=== PATIENT | male | born 1985 | race Caucasian/White ===

== ENCOUNTER 2020-09-18 10:39 | Emergency (ER) | payer MEDICAID, SELFPAY ==
[2020-09-18 10:42] VITALS: BP 122/90; PULSE 105; RESP 22; TEMP 36.4; O2SAT 95
--- NOTE | 2020-09-18 11:02 | ED.GENADUL_ITS ---
Discharge Plan Disposition Patient Disposition: HOME Condition: Stable Discharge Details Clinical Impression: Hyperglycemia Primary Care Provider: None,None ED Provider: Pascual Mohamud Home Meds and New Rx's Prescriptions: New metformin 500 mg tablet extended release 24 hr 500 mg PO QPM Qty: 10 RF: 0 Discharge Instructions Instructions: Diabetic Hyperglycemia (ED) Additional Instructions: At this time your glucose level is elevated and you have received IV fluid. Your A1c shows that your average glucose level has been approximately 310. As we discussed, today is only the start of your evaluation and therapy. I am going to give you 10 days worth of an oral medication called Metformin. I have placed you on the care management list to help expedite outpatient primary care follow-up and a meeting with the certified adaptive physical educator. Please watch for new or worsening symptoms and return to the ER for any concerns. Medical Decision Making <ROCHELLE Singh - Last Filed: 09/18/20 13:31> 34-year-old male presents to the ER today after his medical screening at his new job revealed that his glucose was in the high 300s, low 400s. He is asymptomatic. He has not seen a medical provider in nearly 7 years. Denies recent illness or trauma. Patient is asymptomatic, but upon review of systems, he reports possibly being more thirsty than usual. Will obtain CBC, CMP, magnesium, urinalysis, A1c, give 1 L IV fluid. I have also requested that our care management team be involved, please see her note. Laboratory values reveal a white blood cell count of 5.77 hemoglobin 14 hematocrit 39.7 platelet count 214. Sodium 134 potassium 4.0, carbon dioxide 19.6 with an anion gap of 14.4 creatinine 0.98 for GFR of greater than 60. Glucose 362 hemoglobin is 11.1, calcium 8.4, urinalysis with trace ketones, trace blood, 500 mg/dl. Work-up in the ER reveals glucose of 322, A1c of 11.1, anion gap of 14.4, patient was given 1 L IV fluid. Repeat glucose 333. I will provide a prescription for Metformin extended release, 500 mg to take at night, total of 10 tablets. Our care management team will help expedite outpatient care. Our certified adaptive physical educator came to the ER to evaluate and discuss diabetes with patient, patient has no additional questions or concerns and is comfortable with this plan. Fingerstick of 242 upon discharge Lab Data Lab results reviewed: Yes I reviewed the patient's lab results. Lab results narrative: Laboratory Tests Range/Units 09/18/20 09/18/20 09/18/20 11:00 11:00 11:00 WBC (4.4-10.8) 10^3/uL 5.77 RBC (4.36-5.78) 10^6/uL 4.59 Hgb (13.5-17.5) g/dL 14.0 Hct (40.0-50.0) % 39.7 L MCV (80-95) fL 86.5 MCH (27.0-33.0) pg 30.5 MCHC (32.0-36.0) % 35.3 RDW (11.8-14.1) % 13.2 Plt Count (130-400) 10^3/uL 214 MPV (8.0-11.0) fL 9.6 Immature Gran % 0.2 Neutrophils % 53.7 Lymphocytes % 38.5 Monocytes % 5.4 Eosinophils % 1.9 Basophils % 0.3 Nucleated RBC % % 0 Absolute Neutrophils (1.2-6.7) 10^3/uL 3.10 Absolute Lymphocytes (1.2-3.4) 10^3/uL 2.22 Absolute Monocytes (0.1-0.8) 10^3/uL 0.31 Absolute Eosinophils (0.0-0.7) 10^3/uL 0.11 Absolute Basophils (0.0-0.2) 10^3/uL 0.02 Sodium (136-145) mmol/L 134 L Potassium (3.5-5.1) mmol/L 4.0 Chloride (98-107) mmol/L 100 Carbon Dioxide (21.0-32.0) mmol/L 19.6 L Anion Gap (3-11) mmol/L 14.4 H BUN (7-18) mg/dL 12 Creatinine (0.70-1.30) mg/dL 0.98 Estimated GFR/1.73 m2 (mL/min/1.73m2) >= 60.00 Glucose (74-106) mg/dL 362 H Hemoglobin A1c (<5.7) % 11.1 H Calcium (8.5-10.1) mg/dL 8.4 L Magnesium (1.8-2.4) mg/dL 1.9 Total Bilirubin (0.2-1.0) mg/dL 0.9 AST (15-37) U/L 32 ALT (16-63) U/L 64 H Alkaline Phosphatase (46-116) U/L 69 Total Protein (6.4-8.2) g/dL 7.7 Albumin (3.4-5.0) g/dL 3.7 Urine Color (Yellow) Urine Clarity (Clear) Urine pH (5-8) Ur Specific State [place] (1.005-1.025) Urine Protein (Negative) mg/dL Urine Ketones (Negative) mg/dL Urine Blood (Negative) Urine Nitrite (Negative) Urine Bilirubin (Negative) Urine Urobilinogen (Up TO 0.2) EU/dL Ur Leukocyte Esterase (Negative) Urine RBC (0-2) HPF Urine WBC (0-5) HPF Ur Epithelial Cells (Negative) HPF Urine Crystals (Negative) HPF Urine Bacteria (Negative) HPF Urine Casts (Negative) LPF Urine Mucus (Negative) Ur Culture Indicated? Urine Glucose (Negative) mg/dL Range/Units 09/18/20 11:33 WBC (4.4-10.8) 10^3/uL RBC (4.36-5.78) 10^6/uL Hgb (13.5-17.5) g/dL Hct (40.0-50.0) % MCV (80-95) fL MCH (27.0-33.0) pg MCHC (32.0-36.0) % RDW (11.8-14.1) % Plt Count (130-400) 10^3/uL MPV (8.0-11.0) fL Immature Gran % Neutrophils % Lymphocytes % Monocytes % Eosinophils % Basophils % Nucleated RBC % % Absolute Neutrophils (1.2-6.7) 10^3/uL Absolute Lymphocytes (1.2-3.4) 10^3/uL Absolute Monocytes (0.1-0.8) 10^3/uL Absolute Eosinophils (0.0-0.7) 10^3/uL Absolute Basophils (0.0-0.2) 10^3/uL Sodium (136-145) mmol/L Potassium (3.5-5.1) mmol/L Chloride (98-107) mmol/L Carbon Dioxide (21.0-32.0) mmol/L Anion Gap (3-11) mmol/L BUN (7-18) mg/dL Creatinine (0.70-1.30) mg/dL Estimated GFR/1.73 m2 (mL/min/1.73m2) Glucose (74-106) mg/dL Hemoglobin A1c (<5.7) % Calcium (8.5-10.1) mg/dL Magnesium (1.8-2.4) mg/dL Total Bilirubin (0.2-1.0) mg/dL AST (15-37) U/L ALT (16-63) U/L Alkaline Phosphatase (46-116) U/L Total Protein (6.4-8.2) g/dL Albumin (3.4-5.0) g/dL Urine Color (Yellow) Yellow Urine Clarity (Clear) Clear Urine pH (5-8) 5.5 Ur Specific State Center (1.005-1.025) 1.025 Urine Protein (Negative) mg/dL Negative Urine Ketones (Negative) mg/dL Trace H Urine Blood (Negative) Trace-intact H Urine Nitrite (Negative) Negative Urine Bilirubin (Negative) Negative Urine Urobilinogen (Up TO 0.2) EU/dL 0.2 Ur Leukocyte Esterase (Negative) Negative Urine RBC (0-2) HPF 0-2 Urine WBC (0-5) HPF 0-2 Ur Epithelial Cells (Negative) HPF Rare Urine Crystals (Negative) HPF Negative Urine Bacteria (Negative) HPF Negative Urine Casts (Negative) LPF Negative Urine Mucus (Negative) Negative Ur Culture Indicated? No Urine Glucose (Negative) mg/dL 500 H <Hudson Melendez MD - Last Filed: 09/18/20 12:11> I had a [id number] encounter with the patient. I evaluated the patient. I discussed case with TRAVEL ASSISTANT/PA and I reviewed TRAVEL ASSISTANT/PA note and agree with note as documented. HPI <ROCHELLE Singh - Last Filed: 09/18/20 13:31> General Mode of arrival: ambulatory . Date/Time Provider Initiated Documentation: 09/18/20 11:00 . Limitations to Documentation: no limitations . Information obtained by: patient . HPI Narrative: This is a 34-year-old gentleman who she is tobacco, denies any other significant past medical history. He has not seen a medical provider in approximately 7 years. He is in the process of getting a new job and because of this has been screened through work. His glucose was noted to be in the low 400s in the high 300s. He does know that diabetes runs in his family. Patient reports that he is essentially asymptomatic. Denies headache, visual changes, neck pain, chest pain, shortness of breath, abdominal pain, nausea, vomiting, change in bowel or bladder function, increased urination, skin rash, numbness, tingling, weakness. Upon further questioning, he does wonder if he was slightly more thirsty lately compared to his baseline. He denies recent illness or trauma. He admits that he has lost 20-30 pounds this year, this weight loss was not overtly intentional, but does admit to increasing his overall physical activity and a slightly better diet. Related Data Home Medications Medication Instructions Recorded Confirmed metformin 500 mg PO QPM #10 tab 09/18/20 Previous Rx's Medication Instructions Recorded metformin 500 mg PO QPM #10 tab 09/18/20 Allergies Allergy/AdvReac Type Severity Reaction Status Date / Time No Known Allergies Allergy Unverified 09/18/20 10:48 General Stated Complaint: Diabetes TERA: 4 Review of Systems <ROCHELLE Singh - Last Filed: 09/18/20 13:31> Constitutional Constitutional: Denies fatigue, Denies fever(s) and Denies weakness Eyes Eyes: Denies blurry vision and Denies change in vision ENT Ears, Nose, Mouth, and Throat: Denies dizziness and Denies neck pain Cardiovascular Cardiovascular: Denies chest pain and Denies dyspnea Respiratory Respiratory: Denies cough and Denies dyspnea Gastrointestinal Gastrointestinal: Denies abdominal pain, Denies nausea and Denies vomiting Genitourinary Genitourinary: Denies urinary frequency Musculoskeletal Musculoskeletal: Denies neck pain, Denies numbness and Denies tingling Integumentary/Breasts Skin/Breast: Denies rash Neurologic Neurologic: Denies dizziness, Denies numbness, Denies tingling and Denies weakness Endocrine Endocrine: Denies fatigue and Reports polydipsia PFSH <ROCHELLE Singh - Last Filed: 09/18/20 13:31> Medical History Gout Surgical History Hx of tonsillectomy Social History Smoking/Tobacco Use Status: Current every day Tobacco Type: smokeless tobacco Smoking risk assessment performed?: Yes Alcohol Intake: current Alcohol Intake frequency: a few times a month Substance use type: does not use Do you feel safe at home: Yes Do you feel safe in your relationship?: Yes Exam <ROCHELLE Singh - Last Filed: 09/18/20 13:31> Const General: cooperative, healthy appearing, comfortable and no acute distress Orientation: alert, awake and oriented x3 HENMT Head: normal to inspection, normocephalic and atraumatic Face and sinus: normal facial exam Mouth: moist mucous membranes Eyes General: appearance normal, both eyes and all related structures Alignment and Position: alignment normal Periorbital: periorbital findings normal Eyelids: eyelids normal Conjunctivae: conjunctivae normal Sclera: sclerae normal Cornea: corneas normal Pupils: PERRL EOM: EOM intact bilaterally Direct ophthalmoscopy: normal light reflex Neck Neck: normal visual inspection, full ROM, trachea midline and supple Resp Effort & Inspection: normal respiratory effort and able to speak in complete sentences Auscultation: clear to auscultation bilaterally Cardio Rate: regular rate Rhythm: regular rhythm GI Palpation: soft and nontender Back/Spine/Pelvis Back: No back tenderness Skin General skin exam: no rashes or lesions noted Neuro General: patient alert, patient awake, patient oriented x3, moves all extremities and no focal motor deficits Cognition: normal cognition Speech: speech normal Gait: normal gait Motor: muscle tone normal throughout Sensory Exam: no sensory deficits noted Extrem General: normal to inspection, full ROM and capillary refill normal Psych Appearance: grossly normal Mental Status: mental status grossly normal Course <ROCHELLE Singh - Last Filed: 09/18/20 13:31> Vital Signs Vital signs: Vital Signs Temperature 36.4 C L 09/18/20 10:42 Pulse 105 H 09/18/20 10:42 Respiratory Rate 22 09/18/20 10:42 Blood Pressure 122/90 09/18/20 10:42 Pulse Oximetry 95 09/18/20 10:42 Temperature 36.4 C L 09/18/20 10:42 Temperature Source Temporal Artery Scan 09/18/20 10:42 Pulse 105 H 10/30/20 10:42 Respiratory Rate 22 09/18/20 10:42 Respiratory Effort Non-Labored 09/18/20 10:49 Blood Pressure 122/90 09/18/20 10:42 Blood Pressure Position Sitting 09/18/20 10:42 Pulse Oximetry 95 09/18/20 10:42 Oxygen Delivery Method Room Air 09/18/20 10:42 Oxygen Flow Rate 0 09/18/20 10:42 Pain Level 0 09/18/20 10:42
[2020-09-18 11:09] LABS: Abs Immature Grans 0.01 10^3/uL (0.0-0.06); Absolute Basophil Count 0.02 10^3/uL (0.0-0.2); Absolute Eosinophil Count 0.11 10^3/uL (0.0-0.7); Absolute Lymphocyte Count 2.22 10^3/uL (1.2-3.4); Absolute Monocyte Count 0.31 10^3/uL (0.1-0.8); Basophils % 0.3; Eosinophils % 1.9; HCT 39.7 % (40.0-50.0); Immature Grans % 0.2; Lymphocytes % 38.5; MCH 30.5 pg (27.0-33.0); MCHC 35.3 % (32.0-36.0); MCV 86.5 fL (80-95); MPV 9.6 fL (8.0-11.0); Monocytes % 5.4; Neutrophils % 53.7; Nucleated RBC 0 %; Platelet Count 214 10^3/uL (130-400); RBC 4.59 10^6/uL (4.36-5.78); RDW 13.2 % (11.8-14.1); RDW-SD 40.8 fL; WBC 5.77 10^3/uL (4.4-10.8)
[2020-09-18] MEDS: Normal Saline 1,000 ML 1000 ML IV (11:13)
[2020-09-18 11:24] LABS: Albumin 3.7 g/dL (3.4-5.0); Alkaline Phosphatase 69 U/L (46-116); Anion Gap 14.4 mmol/L (3-11); BUN 12 mg/dL (7-18); Bilirubin, Total 0.9 mg/dL (0.2-1.0); CO2 19.6 mmol/L (21.0-32.0); CREATININE 0.98 mg/dL (0.70-1.30); Calcium 8.4 mg/dL (8.5-10.1); Chloride 100 mmol/L (98-107); Glucose 362 mg/dL (74-106); Magnesium 1.9 mg/dL (1.8-2.4); Sodium 134 mmol/L (136-145); Total Protein 7.7 g/dL (6.4-8.2)
--- NOTE | 2020-09-18 11:28 | NUR.NOTE ---
Nursing Note: Referral given to Care Management to establish care w/PCP. Indira Augustine
[2020-09-18 11:34] LABS: Hemoglobin A1C 11.1 % (<5.7)
[2020-09-18 11:40] LABS: Bilirubin Negative (Negative); Blood Trace-intact (Negative); Clarity Clear (Clear); Glucose 500 mg/dL (Negative); Ketones Trace mg/dL (Negative); Leukocyte Esterase Negative (Negative); Nitrite Negative (Negative); Specific Gravity 1.025 (1.005-1.025); Urobilinogen 0.2 EU/dL (Up TO 0.2); pH 5.5 (5-8)
[2020-09-18 11:54] LABS: Bacteria Negative HPF (Negative); C & S Indicated? No; Casts Negative LPF (Negative); Crystals Negative HPF (Negative); Epithelial Cells Rare HPF (Negative); Mucus Negative (Negative); RBC 0-2 HPF (0-2); WBC 0-2 HPF (0-5)
[2020-09-18 11:55] VITALS: BP 108/70; PULSE 92; RESP 18; TEMP 36.8; O2SAT 98
[2020-09-18 12:09] LABS: AST 32 U/L (15-37)
[2020-09-18 12:12] LABS: ALT 64 U/L (16-63)
[2020-09-18 12:46] VITALS: BP 108/70; PULSE 90; RESP 18; TEMP 36.8; O2SAT 98
--- NOTE | 2020-09-18 12:57 | NUR.NOTE ---
Nursing Note:Call placed to CM to assist getting breastfeeding educator to meet with pt in ED. Plan to discharge home with [facility] - needs meter and further diabetic management education.
--- NOTE | 2020-09-18 13:26 | NUR.NOTE ---
Nursing Note: diabetic counselor in room with pt, providing meter and instruction for home use. CM aware of referral for PCP and need for close f/u.
--- NOTE | 2020-09-18 13:37 | NUR.NOTE ---
Nursing Note: pt has follow up with diabetic counselor on of this coming week. Received education well.
--- NOTE | 2020-09-18 14:36 | DIABASSESS_ITS ---
Date of service: 09/18/20 Time of Service: 14:36 Diabetes Note NOTE: Melo referred to assembly instructions writer for diabetes education, glucometer training while in ER for new onset Type 2 Diabetes with A1c of 11%. He does not have insurance. Provided Melo with glucometer and had him check his blood sugars and demonstrate understanding on how to use device. Explained that he will need to buy test strips and lancets as needed. Recommended that he check his blood sugars 3 times daily and bring glucometer to appt. scheduled for 09/24/20 at 2pm for outpatient diabetes education. Time Spent in Nutritional Counseling and Treatment: 20 min spent face to face
== END 2020-09-18 13:38 | disposition home or self-care (01) ==
PROVIDERS: Emergency Provider Physician Assistant
DX: R73.9 Hyperglycemia, unspecified (principal)
CPT/HCPCS: 36416; 80053; 82962; 96360; 96361; 99284; 81003; 81015; 83036; 83735; 85025

== ENCOUNTER 2020-10-15 16:11 | Emergency (ER) | payer BC, SELFPAY ==
[2020-10-15] VITALS (33 sets, daily range): BP systolic 101–137; BP diastolic 60–95; PULSE 70–108; RESP 10–24; TEMP 36.4; O2SAT 95–99
--- NOTE | 2020-10-15 16:12 | ED.GENADUL_ITS ---
Discharge Plan Disposition Patient Disposition: HOME Condition: Good Discharge Details Clinical Impression: Hyperglycemia, Lightheadedness Primary Care Provider: None,None ED Provider: Tawny Guadalupe Home Meds and New Rx's Prescriptions: Continued metformin 500 mg tablet extended release 24 hr 500 mg PO QPM Qty: 10 RF: 0 Discharge Instructions Instructions: Chest Pain (ED), Diabetic Hyperglycemia (ED) Additional Instructions: Encourage water intake. Please continue with your diabetic diet as advised. Please continue with Metformin as previously prescribed. You need to follow-up with primary care for continued management of this. Care management will be in touch please continue to move forward to establish care and appropriate follow- up. With your risk factors and family history, I do feel that further cardiology work-up as an outpatient would be appropriate. I have referred you to have a cardiac stress test. If you develop fever/chills, chest pain, shortness of breath or other new/worsening symptoms please seek care urgently once again. Discharge Data Discharge Date/Time-TO BE ENTERED AT DEPARTURE: 10/15/20 20:38 Medical Decision Making Patient is a pleasant 34 year old male, recently diagnosed with type II DM and started on Metformin, presenting with c/c of lightheadedness and dizziness. States that he has had similar episodes multiple times in the past. This is no worse than his typical episodes, he is only here because work made me come. He denies SOB, CP, N/V. No recent illness. Patient has not had time to establish with a PCP after his recent diagnosis of DM but did have his metformin refilled at another ED. His exam is reassuring. Not noticed any neurological deficits. No nystagmus. Normal cardiac and respiratory exam. No lower extremity swelling or calf tenderness. Patient was noted to be tachycardic at 108. This is quite comparable to where he was historically. I am concerned that he has been having this primarily in exertional manner. He does report one early cardiac in his family at age 49. I am concerned with this, his obesity as well as she recently diagnosed diabetes which is not yet controlled, but he is at higher risk for cardiovascular source of his exertional lightheadedness despite his age. Plan for EKG, troponin. EKG reviewed. Patient is in the sinus rhythm rate 96. No acute ischemic changes noted. EKG reviewed by Dr. Silver. Labs reviewed. No leukocytosis H&H is stable. No significant electrolyte abno rmalities. Glucose is elevated to 57. Troponin 0 0.05. TSH within normal limits. Plan for repeat troponin. Repeat troponin remains less than 0.05. Repeat EKG shows rate of 82 with no acute ischemic changes. Discussed these findings with the patient. I encouraged that he follow-up promptly with primary care. He has not been taking time to do this but I did family and marriage counsellor him again on the risk associated with his uncontrolled diabetes. Again, his risk factors for cardiac source are certainly there despite his age I do feel that outpatient stress testing would be appropriate. Patient was given strict return precautions. We did discuss weight loss, diabetes management. All his questions and concerns were addressed and he is agreement this plan. HPI General Mode of arrival: ambulatory . Date/Time Provider Initiated Documentation: 10/15/20 16:12 . Limitations to Documentation: no limitations . Information obtained by: patient and RN notes reviewed . History of Present Illness 34 year old M presents to the emergency department with the chief complaint of lightheadedness, dizziness, described as moderate and similar to prior episodes, Patient started experiencing this hour(s) (1) and it has been intermittent (current episode is improving). No relieving factors improve symptom(s), Movement worsens symptoms (has had this multiple times previously, typically when at work walking around) . Patient notes no other symptoms.; denies chest pain, cough, fever/chills, headaches, loss of appetite, malaise, nausea/vomiting, shortness of breath, syncope and weakness. Patient did receive the following treatments prior to arrival, none Related Data Home Medications Medication Instructions Recorded Confirmed metformin 500 mg PO QPM #10 tab 09/18/20 10/15/20 Previous Rx's Medication Instructions Recorded metformin 500 mg PO QPM #10 tab 09/18/20 Allergies Allergy/AdvReac Type Severity Reaction Status Date / Time No Known Allergies Allergy Unverified 10/15/20 16:21 General TERA: 4 Review of Systems Constitutional Constitutional: Reports as per HPI, Denies chills, Denies fever(s), Denies headache(s), Denies lethargy and Denies poor appetite Eyes Eyes: Denies change in vision and Denies loss of vision ENT Ears, Nose, Mouth, and Throat: Denies vertigo, Reports dizziness, Denies headache(s) and Denies disequilibrium Cardiovascular Cardiovascular: Reports as per HPI, Denies dyspnea and Denies dyspnea on exertion Respiratory Respiratory: Reports as per HPI, Denies chest congestion, Denies cough, Denies pain on inspiration, Denies pain with cough, Denies dyspnea, Denies dyspnea on exertion and Denies wheezing Gastrointestinal Gastrointestinal: Reports as per HPI, Denies abdominal pain, Denies diarrhea, Denies nausea and Denies vomiting Genitourinary Genitourinary: Denies system reviewed and no additional complaints, except as documented (denies change in urinary habits) Musculoskeletal Musculoskeletal: Reports as per HPI, Denies back pain and Denies numbness Integumentary/Breasts Skin/Breast: Reports as per HPI and Denies rash Neurologic Neurologic: Reports as per HPI, Denies vertigo, Reports dizziness, Denies headache(s), Denies lack of coordination, Denies localized weakness, Denies loss of vision, Denies numbness, Denies sensory deficit and Denies disequilibrium Allergic/Immunologic Allergic/Immunologic: Denies wheezing PFSH Medical History Gout Surgical History Hx of tonsillectomy Social History Smoking/Tobacco Use Status: Current every day Tobacco Type: smokeless tobacco Smoking risk assessment performed?: Yes Alcohol Intake: current Alcohol Intake frequency: a few times a month Substance use type: does not use Do you feel safe at home: Yes Do you feel safe in your relationship?: Yes Exam Const General: cooperative, healthy appearing, comfortable, no acute distress and well developed Nutritional Appearance: well nourished and obese Orientation: alert, awake and oriented x3 HENMT Head: normal to inspection Ears: hearing grossly normal bilaterally Mouth: moist mucous membranes Eyes General: appearance normal, both eyes and all related structures Visual Izquierdo: normal visual izquierdo by confrontation Alignment and Position: alignment normal and position normal Periorbital: periorbital findings normal Pupils: PERRL and normal by confrontation EOM: EOM intact bilaterally Chest Chest: normal inspection of the chest, normal palpation of entire chest wall and no crepitus Resp Effort & Inspection: normal respiratory effort, able to speak in complete sentences and no respiratory distress Auscultation: clear to auscultation bilaterally, no rales, no rhonchi and no wheezes Cardio Rate: regular rate Rhythm: regular rhythm Heart Sounds: S1 normal and S2 normal GI Inspection: normal to inspection, no edema and non-distended Palpation: soft, no hepatosplenomegaly, not firm, no guarding, not rigid and nontender Auscultation: normal bowel sounds Back/Spine/Pelvis Thoracic/Lumbar Spine: thoracic and lumbar spine normal to inspection Skin General skin exam: no rashes or lesions noted Trauma: no lacerations or abrasions Neuro General: patient alert, patient awake and patient oriented x3 Cognition: normal cognition Speech: speech normal Gait: normal gait Extrem General: normal to inspection, capillary refill normal, no pedal edema, no calf tenderness and normal gait Psych Appearance: grossly normal and well kempt Mental Status: mental status grossly normal Speech and Movement: speech and movement normal
--- NOTE | 2020-10-15 16:15 | RT.EKG_ITS ---
APPROVED REPORT Exam: Resting ECG Patient Location: E HR:96 bpm ECG Measurements Heart Rate 96 AXIS ND 152 P 58 QRSd 88 QRS 12 QT 334 T -1 QTc 423 Conclusion Sinus rhythm...normal P axis, V-rate 60- 99 Low voltage, precordial leads...precordial leads <1.0mV
[2020-10-15] MEDS: Normal Saline Flush 10 ML SYR IVP (16:36)
[2020-10-15] MEDS: Lactated Ringers 1,000 ML 1000 ML IV (16:36)
[2020-10-15 16:38] LABS: Abs Immature Grans 0.01 10^3/uL (0.0-0.06); Absolute Basophil Count 0.01 10^3/uL (0.0-0.2); Absolute Lymphocyte Count 1.93 10^3/uL (1.2-3.4); Absolute Monocyte Count 0.42 10^3/uL (0.1-0.8); Absolute Neutrophil Count 4.18 10^3/uL (1.2-6.7); Basophils % 0.2; Eosinophils % 1.5; HCT 40.1 % (40.0-50.0); HGB 13.4 g/dL (13.5-17.5); Immature Grans % 0.2; MCH 28.7 pg (27.0-33.0); MCHC 33.4 % (32.0-36.0); MCV 85.9 fL (80-95); MPV 8.9 fL (8.0-11.0); Monocytes % 6.3; Neutrophils % 62.8; Nucleated RBC 0 %; Platelet Count 267 10^3/uL (130-400); RBC 4.67 10^6/uL (4.36-5.78); RDW 12.8 % (11.8-14.1); RDW-SD 39.4 fL; WBC 6.65 10^3/uL (4.4-10.8)
[2020-10-15 16:58] LABS: ALT 55 U/L (16-63); AST 29 U/L (15-37); Albumin 3.9 g/dL (3.4-5.0); Alkaline Phosphatase 50 U/L (46-116); Anion Gap 7.7 mmol/L (3-11); BUN 14 mg/dL (7-18); Bilirubin, Total 0.9 mg/dL (0.2-1.0); CO2 26.3 mmol/L (21.0-32.0); CREATININE 1.17 mg/dL (0.70-1.30); Chloride 103 mmol/L (98-107); Glucose 267 mg/dL (74-106); Sodium 137 mmol/L (136-145); Total Protein 8.1 g/dL (6.4-8.2)
[2020-10-15 17:09] LABS: TSH 1.75 uIU/mL (0.36-3.74)
[2020-10-15 17:11] LABS: Troponin I < 0.05 ng/mL (<0.06)
--- NOTE | 2020-10-15 19:15 | RT.EKG_ITS ---
APPROVED REPORT Exam: Resting ECG Patient Location: E HR:82 bpm ECG Measurements Heart Rate 82 AXIS MS 156 P 48 QRSd 92 QRS 15 QT 370 T -2 QTc 432 Conclusion Sinus rhythm...normal P axis, V-rate 60- 99 Low voltage, precordial leads...precordial leads <1.0mV Consider anterior infarct...Q >30mS in V2-V5
[2020-10-15 20:00] LABS: Troponin I < 0.05 ng/mL (<0.06)
--- NOTE | 2020-10-15 22:47 | NUR.NOTE ---
Referral to care management was sent 10/15/2020 1047 lib Nursing Note:
== END 2020-10-15 20:38 | disposition home or self-care (01) ==
PROVIDERS: Emergency Provider Physician Assistant
DX: E11.65 Type 2 diabetes mellitus with hyperglycemia (principal); R42 Dizziness and giddiness; E66.9 Obesity, unspecified; Z79.84 Long term (current) use of oral hypoglycemic drugs; Z82.41 Family history of sudden cardiac death; F17.210 Nicotine dependence, cigarettes, uncomplicated
CPT/HCPCS: 36415; 36416; 80053; 82962; 93005; 96360; 99284; 83735; 84443; 84484; 85025; 93010; 99285